=== PATIENT | male | born 1985 | race Caucasian/White ===

== ENCOUNTER 2022-07-13 17:11 | Emergency (ER) | payer SELFPAY ==
[2022-07-13] MEDS ORDERED: Sodium Chloride 0.9% 2.5 ML Syringe FLUSH PRN (17:46)
[2022-07-13] MEDS ORDERED: Sodium Chloride 0.9% 10 ML Syringe FLUSH PRN (17:46)
[2022-07-13] MEDS ORDERED: Sodium Chloride 0.9% 1,000 ML IV ONE ×2 (17:48→20:09)
[2022-07-13] MEDS ORDERED: Ketorolac 30 MG/ML SDV IVPUSH ONE (17:48)
[2022-07-13] MEDS ORDERED: Ondansetron 4 MG/2 ML SDV IVPUSH ONE (17:48)
[2022-07-13 18:35] LABS: CARBON DIOXIDE,CO2 21.2 mmol/L (21.0-32.0); POTASSIUM,K 3.2 mmol/L (3.5-5.1)
[2022-07-13 22:14] VITALS: BP 118/76; PULSE 70
== END 2022-07-13 22:12 | disposition home or self-care (01) ==
LOC: MW.ED 17:11
DX: N13.2 Hydronephrosis with renal and ureteral calculous obstruction (principal)
CPT/HCPCS: 36415; 74176; 80053; 81001; 83690; 85025; 96361; 96374; 96375; 99284; J1885; J2405; J3490; J7030

== ENCOUNTER 2022-08-08 18:30 | Emergency (ER) | payer SELFPAY ==
[2022-08-08 20:14] LABS: BLOOD UREA NITROGEN,BUN 20 mg/dL (7.0-18.0); CARBON DIOXIDE,CO2 26.8 mmol/L (21.0-32.0); CHLORIDE,CL 107 mmol/L (98-107); GLUCOSE RANDOM 109 mg/dL (74-106); LIPASE 128 U/L (73-393); SODIUM,NA 142 mmol/L (136-148)
[2022-08-08 20:15] LABS: ESTIMATED GFR 81 mL/min (>60)
[2022-08-08] MEDS ORDERED: Alum Hydro/Mag Hydro/Simeth XS 15 ML, Lidocaine 2% 5 ML PO ONE ×2 (21:05)
[2022-08-09 02:07] VITALS: BP 110/78; PULSE 72
== END 2022-08-08 21:30 | disposition home or self-care (01) ==
LOC: MW.ED 18:30
DX: R07.89 Other chest pain (principal)
CPT/HCPCS: 36415; 71046; 80053; 83690; 84484; 85025; 93005; 99285; A9270; 93010; 99284

== ENCOUNTER 2023-12-07 01:55 | Emergency (ER) | payer SELFPAY ==
[2023-12-07] MEDS ORDERED: Bacitracin Oint 1 GM U/D Packet TOP ONE (03:06)
[2023-12-07 05:24] VITALS: PULSE 78
[2023-12-07 06:35] VITALS: BP 125/73
== END 2023-12-07 03:44 | disposition home or self-care (01) ==
LOC: MW.ED 01:55
DX: S01.112A Laceration without foreign body of left eyelid and periocular area, initial encounter (principal); S00.83XA Contusion of other part of head, initial encounter; Y04.2XXA Assault by strike against or bumped into by another person, initial encounter; Y92.71 Barn as the place of occurrence of the external cause
CPT/HCPCS: 12001; 12011; 99283